=== PATIENT | female | born 1945 | race Caucasian/White ===

== ENCOUNTER 2018-05-28 10:21 | Day surgery (SDC) | payer OTHER ==
[2018-05-28] MEDS ORDERED: LR 1,000 ML IV ONE (10:38)
[2018-05-28] MEDS ORDERED: LIDOCAINE 1% 2 ML INJ ID PRN (10:38)
[2018-05-28] MEDS ORDERED: PROPOFOL/EMULSION 500 MG/50 ML BOTTLE IV ONE (11:36)
[2018-05-28] MEDS ORDERED: fentaNYL 100 MCG/2 ML INJ ONE (11:36)
[2018-05-28] MEDS ORDERED: LIDOCAINE 2% 2 ML INJ ONE (11:36)
[2018-05-28] MEDS ORDERED: NALOXONE HCL 0.4 MG/ML INJ IVP PRN (11:43)
[2018-05-28] MEDS ORDERED: LR 500 ML IV PRN (11:43)
[2018-05-28] MEDS ORDERED: DEXAMETHASONE 4 MG/ML VIAL IVP PRN (11:43)
[2018-05-28] MEDS ORDERED: MEPERIDINE 25 MG/0.5 ML AMP IVP PRN (11:43)
[2018-05-28] MEDS ORDERED: fentaNYL 100 MCG/2 ML INJ IVP PRN (11:43)
[2018-05-28] MEDS ORDERED: ONDANSETRON 4 MG/2 ML VIAL IVP PRN (11:43)
--- NOTE | 2018-05-28 11:43 | PDANEPAE ---
ANE History of Present Illness anemia, here for egd and colonoscopy ANE Past Medical History - Cardiovascular History Hx Hypertension: Yes Hx Arrhythmias: Yes Hx Chest Pain: No Hx Coronary Artery / Peripheral Vascular Disease: No Hx CHF / Valvular Disease: Yes Hx Palpitations: No Cardiovascular History Comment: afib. chf. saw enterprise data architect x1, now pcp monitors xarelto, dtr and pt unaware who enterprise data architect was - Pulmonary History Hx COPD: No Hx Asthma/Reactive Airway Disease: No Hx Recent Upper Respiratory Infection: No Hx Oxygen in Use at Home: No Hx Sleep Apnea: No Sleep Apnea Screening Result - Last Documented: Negative - Neurologic History Hx Cerebrovascular Accident: No Hx Seizures: No Hx Dementia: No - Endocrine History Hx Diabetes: No Endocrine History Comment: hypothyroidism - Renal History Hx Renal Disorders: No - Liver History Hx Hepatic Disorders: No - Neurological & Psychiatric Hx Hx Neurological and Psychiatric Disorders: No - Cancer History Hx Cancer: No - Congenital Disorder History Hx Congenital Disorders: No - GI History Hx Gastrointestinal Disorders: Yes Gastrointestinal History Comment: reflux - Other Health History Other Health History: recent anemia- recieving iron infusion every week x4 - Chronic Pain History Chronic Pain: No - Surgical History Prior Surgeries: gastric bypass. bilateral BI. kathy ANE Review of Systems Review of Systems: - Exercise capacity METS (RN): 3 METS ANE Patient History - Allergies Allergies/Adverse Reactions: No Known Allergies Allergy (Verified 05/28/18 11:04) - Home Medications Home Medications: Furosemide 05/22/18 [Last Taken 05/26/18] Levothyroxine 05/22/18 [Last Taken 05/26/18] Omeprazole 05/22/18 [Last Taken 05/26/18] Toprol Xl 50 mg (*) 05/22/18 [Last Taken 05/26/18] Xarelto 05/22/18 [Last Taken 05/25/18] - NPO status NPO Since - Liquids (Date): 05/28/18 NPO Since - Liquids (Time): 07:00 NPO Since - Solids (Date): 05/26/18 NPO Since - Solids (Time): 17:00 - Smoking Hx Smoking Status: Never smoked - Family Anes Hx Family Hx Anesthesia Complications: none ANE Labs/Vital Signs - Vital Signs Blood Pressure: 122/85 Heart Rate: 114 Respiratory Rate: 16 O2 Sat (%): 95 Height: 152.4 cm Weight: 64.41 kg ANE Physical Exam - Airway Neck exam: FROM Mallampati Score: Class 2 Mouth exam: normal dental/mouth exam - Pulmonary Pulmonary: no respiratory distress - Cardiovascular Cardiovascular: irregularly irregular - ASA Status ASA Status: III ANE Anesthesia Plan Anesthesia Plan: GA with mask
--- NOTE | 2018-05-28 12:16 | PDGENHP ---
History & Physical Chief Complaint: anemia, iron def anemia History of Present Illness: fobt positive and iron def Pertinent Past, Social, Family History: Fhx - daughter with polyps. tobacco - none. alcohol - very rare. gastric bypass, hx iron def, hypothyroidism Relevant Physical Exam: a+ox3. cta. s1s2. irreg irreg. +BS, soft nt Cardiorespiratory Assessment: class 3
--- NOTE | 2018-05-28 13:30 | GIREPORT ---
Formerly [facility], [facility] Surgical Services - Endoscopy Department Patient Name: Patricia Roa Procedure Date: 05/28/2018 12:00 PM Patient Type: Outpatient Attending MD/ ER Physician: Nena Pool Procedure: Upper GI endoscopy Indications: Suspected upper gastrointestinal bleeding in patient with unexplained i kumar deficiency anemia Providers: Silvino Montero MD Referring MD: Ike Moreno MD Medicines: Total IV Anesthesia (TIVA) Complications: No immediate complications. Estimated blood loss: Minimal. Description of Procedure: After obtaining informed consent, the endoscope was passed under direct vision. Throughout the procedure, the patient's blood pressure, pulse, and oxygen saturations were monitored continuously. The Endoscope was intro duced through the mouth, and advanced to the afferent and efferent jejunal lo ops. The upper GI endoscopy was accomplished without difficulty. The patient tolerated the procedure well. Findings: The examined esophagus was normal. 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 The gastrojejunal anastomosis was characterized by healthy appearing mucosa. This was traversed. The usmqr-kt-czbsyud limb was characterized by healthy appea ring mucosa. The jejunojejunal anastomosis was characterized by healthy appe aring mucosa. The mmjtbzvm-vm-nojjxhd limb was not examined as it could not b e found. Biopsies for histology were taken with a cold forceps for evalua tion of celiac disease. Estimated blood loss was minimal. Estimated Blood Loss: Estimated blood loss was minimal. Post Op Diagnosis: - Normal esophagus. - Janeth-en-Y gastrojejunostomy with gastrojejunal anastomosis characteri zed by healthy appearing mucosa. Biopsied. Recommendation: - Await pathology results. - My office will call with the pathology result with 5-7 days. If you h ave not heard from my office by 14, do not assume the pathology is geovanna l, please call [phone] to get the pathology results. - Perform a colonoscopy today. - Continue present medications. Omeprazole can be used up to 40mg PO BI D. Her gastric remnant can be a source of blood loss and her surgery can interfere with iron absorption. - Iron replacement as per PCP - Return to primary care physician as previously scheduled. - Thank you for allowing me to help in your patient's care. Do not hesi giron to call with any questions. Attending Participation: I personally performed the entire procedure. Kylah Dubois M.D Silvino Montero MD 05/28/2018 1:30:18 PM This report has been signed electronicallyMathew MD Kylah Number of Addenda: 0 Note Initiated On: 05/28/2018 12:00 PM [email or web address]
--- NOTE | 2018-05-28 13:33 | GIREPORT ---
[facility] Surgical Services - Endoscopy Department Patient Name: Patricia Roa Procedure Date: 05/28/2018 12:35 PM Patient Type: Outpatient Attending MD/ ER Physician: Nena Pool Procedure: Colonoscopy Indications: Iron deficiency anemia Providers: Silvino Montero MD Referring MD: Ike Moreno MD Medicines: Total IV Anesthesia (TIVA) = IV general w/o airway Complications: No immediate complications. Description of Procedure: After obtaining informed consent, the scope was passed under direct vis ion. Throughout the procedure, the patient's blood pressure, pulse, and oxyg en saturations were monitored continuously. The Colonoscope was introduced through the anus and advanced to the terminal ileum, with identificatio n of the appendiceal orifice and IC valve. The Colonoscope with irrigation channel was introduced through the and advanced to. The colonoscopy was performed with difficulty due to a redundant colon, significant looping and the patient's body habitus. Successful completion of the procedure was aided by using manual pressure, withdrawing the scope and replacing with the adult endoscope and straightening and shortening the scope to obtain bowel lo op reduction. The patient tolerated the procedure well. The quality of the bowel preparation was good. Findings: The digital rectal exam was normal. The terminal ileum appeared normal. The entire examined colon appeared normal. Estimated Blood Loss: Estimated blood loss: none. Post Op Diagnosis: - The examined portion of the ileum was normal. - The entire examined colon is normal. - No specimens collected. Recommendation: - Resume previous diet. - Patient has a contact number available for emergencies. The signs and symptoms of potential delayed complications were discussed with the pat ient. Return to normal activities tomorrow. Written discharge instructions we re provided to the patient. - Continue present medications. - No repeat colonoscopy due to age and the absence of colonic polyps. - Discharge patient to home (ambulatory). - Return to primary care physician as previously scheduled. - See EGD for other recommendations - Thank you for allowing me to help in your patient's care. Do not hesi giron to call with any questions. Attending Participation: I personally performed the entire procedure. Kylah Dubois M.D Silvino Montero MD 05/28/2018 1:33:05 PM This report has been signed electronicallyMathew MD Kylah Number of Addenda: 0 Note Initiated On: 05/28/2018 12:35 PM Total Procedure Duration Time 0 hours 26 minutes 23 seconds [email or web address]
[2018-05-28 13:46] VITALS: BP 121/71
--- NOTE | 2018-05-28 16:45 | POSTANESTH ---
Post Anesthetic Evaluation Cardiovascular Status: Normal, Stable Respiratory Status: Normal, Stable Level of Consciousness/Mental Status: Can Participate in Eval Pain Control: Adequate, Prn Tx Ordered Nausea/Vomiting Control: Adequate, Prn Tx Ordered Complications Possibly Related to Anesthesia: None Noted
== END 2018-05-28 14:09 | disposition home or self-care (01) ==
LOC: FSGY 10:21
PROVIDERS: ATTEND Internal Medicine Gastroenterology
PROC: 0DB98ZX Excision of Duodenum, Via Natural or Artificial Opening Endoscopic, Diagnostic (ICD-10-PCS; principal; 2018-05-28 12:00)
PROC: 0DJD8ZZ Inspection of Lower Intestinal Tract, Via Natural or Artificial Opening Endoscopic (ICD-10-PCS; principal; 2018-05-28 12:00)
DX: D50.9 Iron deficiency anemia, unspecified (principal); Z98.84 Bariatric surgery status
CPT/HCPCS: J2704; J3010